=== PATIENT | female | born 1990 | race Caucasian/White ===

== ENCOUNTER 2017-11-18 02:22 | Inpatient (IN) | payer OTHER, MEDICAID ==
[2017-11-18 04:59] LABS: ADD MAN DIFF? NO
[2017-11-18] MEDS ORDERED: IBUPROFEN 600 MG TAB PO (05:00)
[2017-11-18] MEDS ORDERED: OXYTOCIN 30 UNITS/LR 500 ML IV ×3 (05:00→07:00)
[2017-11-18] MEDS ORDERED: LIDOCAINE 1% (MPF) 30 ML INJ INJ (05:00)
[2017-11-18] MEDS ORDERED: MISOPROSTOL 200 MCG TAB PR ×2 (05:00→07:00)
[2017-11-18] MEDS ORDERED: CARBOPROST 250 MCG INJ IM ×2 (05:00→07:00)
[2017-11-18] MEDS ORDERED: BUTORPHANOL 2 MG INJ IV (05:00)
[2017-11-18] MEDS ORDERED: METHYLERGONOVINE 0.2 MG INJ IM ×2 (05:00→07:00)
[2017-11-18] MEDS ORDERED: BUTORPHANOL 1 MG INJ IV (05:00)
[2017-11-18] MEDS ORDERED: ACETAMINOPHEN/CODEINE #3 TAB PO (05:00)
[2017-11-18 05:01] LABS: WHITE BLOOD COUNT 12.1 10^3/ul (4.8-10.8)
[2017-11-18 05:01] LABS: EOSINOPHILS % 0.1 % (0.0-7.0); HEMATOCRIT 36.1 % (37.0-47.0); HEMOGLOBIN 12.6 g/dl (12.0-16.0); MEAN CORPUSCULAR HEMOGLOBIN 31.2 pg (29.0-33.0); MEAN CORPUSCULAR HGB CONC 34.9 g/dl (32.0-37.0); MEAN CORPUSCULAR VOLUME 89.4 fl (82.0-101.0); MONOCYTES % 4.9 % (0.0-11.0); PLATELET COUNT 226 10^3/UL (140-415); RED BLOOD COUNT 4.04 10^6/ul (4.20-5.40); RED CELL DISTRIBUTION WIDTH 13.5 % (11.5-14.5)
[2017-11-18 05:02] LABS: BASOPHILS % 0.2 % (0.0-2.0); LYMPHOCYTES # 1.9 10^3/ul (0.8-2.9); MONOCYTE # 0.6 10^3/ul (0.3-0.9); NEUTROPHIL # 9.5 10^3/ul (1.6-7.5)
[2017-11-18] MEDS: LACTATED RINGER'S 1,000 ML IV* ×4 (05:05→22:37)
[2017-11-18] MEDS: AMPICILLIN 2 GM/NS (PMX) 100 ML IV (05:08)
[2017-11-18 05:16] LABS: PROTIME 11.1 Sec (11.9-14.9); PT RATIO 0.9
[2017-11-18 05:17] LABS: PARTIAL THROMBOPLASTIN TIME 25.5 Sec (25.0-35.0)
[2017-11-18 05:21] LABS: ALANINE AMINOTRANSFERASE 26 IU/L (13-69); ALBUMIN 3.7 g/dl (3.3-4.9); ALBUMIN/GLOBULIN RATIO 1.08; ALKALINE PHOSPHATASE 235 IU/L (42-121); ANION GAP 13 (8-16); ASPARTATE AMINO TRANSFERASE 25 IU/L (15-46); BILIRUBIN,INDIRECT 0.3 mg/dl (0-1.1); BILIRUBIN,TOTAL 0.3 mg/dl (0.2-1.3); BLOOD UREA NITROGEN 10 mg/dl (7-20); CALCIUM 9.4 mg/dl (8.4-10.2); CARBON DIOXIDE 21 mmol/L (21-31); CHLORIDE 107 mmol/L (97-110); CREATININE 0.45 mg/dl (0.44-1.00); GLUCOSE 100 mg/dl (70-220); POTASSIUM 4.1 mmol/L (3.5-5.1); SODIUM 137 mmol/L (135-144); TOTAL PROTEIN 7.1 g/dl (6.1-8.1)
[2017-11-18] MEDS: OXYTOCIN 30 UNITS/LR 500 ML IV ×2 (05:47→07:15)
[2017-11-18 06:01] LABS: HEPATITIS B SURFACE ANTIGEN NEGATIVE (NEGATIVE)
[2017-11-18] MEDS ORDERED: DIBUCAINE 1% 30 GM OINT PR (07:00)
[2017-11-18] MEDS ORDERED: MAGNESIUM HYDROXIDE 30ML CUP PO (07:00)
[2017-11-18] MEDS ORDERED: ONDANSETRON 4 MG INJ IV (07:00)
[2017-11-18] MEDS ORDERED: ACETAMINOPHEN 325 MG TAB PO ×2 (07:00)
[2017-11-18] MEDS: BENZOCAINE 20% 56 ML SPRAY TOP (12:35)
[2017-11-18] MEDS: LANOLIN 7 GM TUBE TOP (12:35)
[2017-11-18] MEDS: WITCH HAZEL/GLYCERIN PAD PR (12:35)
[2017-11-18] MEDS: AMPICILLIN 1 GM/NS (PMX) 50 ML IV (13:59)
[2017-11-18 18:37] LABS: RAPID PLASMA REAGIN NONREACTIVE (NR)
[2017-11-18] MEDS: IBUPROFEN 600 MG TAB PO (23:32)
[2017-11-18] MEDS: SENNA/DOCUSATE NA (8.6MG/50MG) TAB PO (23:32)
[2017-11-19] MEDS: LACTATED RINGER'S 1,000 ML IV* ×3 (06:37→22:02)
[2017-11-19 09:21] LABS: ADD MAN DIFF? NO
[2017-11-19 09:34] LABS: WHITE BLOOD COUNT 11.6 10^3/ul (4.8-10.8)
[2017-11-19 09:34] LABS: BASOPHILS % 0.3 % (0.0-2.0); EOSINOPHILS # 0.1 10^3/ul (0.0-0.5); EOSINOPHILS % 0.7 % (0.0-7.0); HEMATOCRIT 31.9 % (37.0-47.0); HEMOGLOBIN 10.9 g/dl (12.0-16.0); LYMPHOCYTES # 3.5 10^3/ul (0.8-2.9); LYMPHOCYTES % 30.1 % (15.0-51.0); MEAN CORPUSCULAR HEMOGLOBIN 31.3 pg (29.0-33.0); MEAN CORPUSCULAR HGB CONC 34.2 g/dl (32.0-37.0); MEAN CORPUSCULAR VOLUME 91.7 fl (82.0-101.0); MEAN PLATELET VOLUME 10.9 fl (7.4-10.4); MONOCYTE # 0.6 10^3/ul (0.3-0.9); MONOCYTES % 5.4 % (0.0-11.0); NEUTROPHIL # 7.3 10^3/ul (1.6-7.5); NEUTROPHILS % 62.7 % (39.0-77.0); PLATELET COUNT 208 10^3/UL (140-415); RED BLOOD COUNT 3.48 10^6/ul (4.20-5.40); RED CELL DISTRIBUTION WIDTH 13.9 % (11.5-14.5)
[2017-11-19] MEDS: IBUPROFEN 600 MG TAB PO ×2 (11:19→17:37)
[2017-11-20] MEDS: IBUPROFEN 600 MG TAB PO (01:27)
[2017-11-20] MEDS: LACTATED RINGER'S 1,000 ML IV* (09:08)
[2017-11-20 13:42] LABS: RUBELLA ANTIBODY - IGM <20.00 AU/mL
== END 2017-11-20 13:05 | disposition home or self-care (01) | DRG 775 ==
LOC: OBT 02:22 → L-D 02:25 → OBT 02:54 → L-D 02:54 → PP1 09:36
PROC: 10E0XZZ Delivery of Products of Conception, External Approach (ICD-10-PCS; principal; 2017-11-18)
PROC: 4A1HXCZ Monitoring of Products of Conception, Cardiac Rate, External Approach (ICD-10-PCS; 2017-11-18)
DX: O48.0 Post-term pregnancy (principal); Z3A.40 40 weeks gestation of pregnancy; Z37.0 Single live birth
CPT/HCPCS: 36415; 80053; 85025; 85610; 85730; 86592; 86762; 86850; 86900; 86901; 87340